=== PATIENT | female | born 1945 | race Caucasian/White ===

== ENCOUNTER 2016-12-04 22:05 | Emergency (ER) | payer MEDICAID ==
[2016-12-05 00:52] LABS: PLATELET COUNT 293 x10^3mcL (130-400)
[2016-12-05 01:01] LABS: CALCIUM 9.3 mg/dL (8.5-10.1); CARBON DIOXIDE 31.9 mmol/L (21-32); CHLORIDE SERUM 96 mmol/L (98-107); CREATININE SERUM 0.5 mg/dL (0.6-1.0); GLUCOSE SERUM 127 mg/dL (74-106); POTASSIUM SERUM 4.2 mmol/L (3.5-5.1); RED CELL DISTRIBUTION WIDTH 16.9 % (11.5-14.5); SODIUM SERUM 131 mmol/L (136-145)
[2016-12-05 01:08] LABS: ALBUMIN 1.7 g/dL (3.4-5.0); ALKALINE PHOSPHATASE 103 U/L (46-116); ALT/SGPT 18 U/L (14-59); AST/SGOT 22 U/L (15-37); BILIRUBIN TOTAL 0.72 mg/dL (0.20-1.00); TOTAL PROTEIN, SERUM 7.4 g/dL (6.4-8.2)
[2016-12-05 01:14] LABS: BAND NEUTROPHIL 50 % (0-10); MONOCYTE 4 % (0-7); SEGMENTED NEUTROPHILS 30 % (37-75)
[2016-12-05 01:15] LABS: rbc morphology (normal/abnorm) ABNORMAL (NORMAL)
[2016-12-05 01:16] LABS: PLATELET MORPHOLOGY LARGE PLATELET SEEN
[2016-12-05 01:40] LABS: microscopic required? YES; urine erythrocyte 1+ (NEGATIVE)
[2016-12-05 04:18] VITALS: BP 98/46
[2016-12-06] MEDS ORDERED: HYDROMORPHONE2 M1 (21:56)
[2016-12-06] MEDS ORDERED: ZOF4 (21:56)
[2016-12-06] MEDS ORDERED: SYNTHROID0.1 MG PO (21:56)
[2016-12-06] MEDS ORDERED: FERROUS SULFAT325 M2 PO (21:56)
[2016-12-06] MEDS ORDERED: LIPI20 GT (21:56)
== END 2016-12-05 04:18 | disposition home or self-care (01) ==
LOC: ED 22:05
PROVIDERS: Emergency Medicine
DX: E87.1 Hypo-osmolality and hyponatremia (principal); C34.32 Malignant neoplasm of lower lobe, left bronchus or lung; C79.89 Secondary malignant neoplasm of other specified sites; Z88.0 Allergy status to penicillin; E03.9 Hypothyroidism, unspecified
CPT/HCPCS: 83880; J2270; J2405; J7030; Q0092

== ENCOUNTER 2016-12-06 21:31 | Inpatient (IN) | payer MEDICAID ==
[~2016-12-06] VITALS: Ht 149.9 cm; Wt 38.3 kg
[2016-12-06] MEDS ORDERED: LIPI20 GT (21:56)
[2016-12-06] MEDS ORDERED: HYDROMORPHONE2 M1 (21:56)
[2016-12-06] MEDS ORDERED: FERROUS SULFAT325 M2 PO (21:56)
[2016-12-06] MEDS ORDERED: SYNTHROID0.1 MG PO (21:56)
[2016-12-06] MEDS ORDERED: ZOF4 (21:56)
[2016-12-06 22:07] LABS: PLATELET COUNT 248 x10^3mcL (130-400)
[2016-12-06 22:11] LABS: RED CELL DISTRIBUTION WIDTH 17.3 % (11.5-14.5)
[2016-12-06 22:20] LABS: ALKALINE PHOSPHATASE 88 U/L (46-116); ALT/SGPT 10 U/L (14-59); AST/SGOT 12 U/L (15-37); BILIRUBIN TOTAL 0.55 mg/dL (0.20-1.00); CALCIUM 8.5 mg/dL (8.5-10.1); CARBON DIOXIDE 29.4 mmol/L (21-32); CHLORIDE SERUM 100 mmol/L (98-107); CREATININE SERUM 0.7 mg/dL (0.6-1.0); GLUCOSE SERUM 198 mg/dL (74-106); LIPASE 44 IU/L (73-393); SODIUM SERUM 136 mmol/L (136-145); TOTAL PROTEIN, SERUM 6.8 g/dL (6.4-8.2)
[2016-12-06 22:21] LABS: ALBUMIN 1.4 g/dL (3.4-5.0)
[2016-12-06 22:23] LABS: POTASSIUM SERUM 2.8 mmol/L (3.5-5.1)
--- NOTE | 2016-12-06 22:25 | NUR ---
GT PATENT. FLUSHED WITHOUT RESISTANCE. +GI CONTENT DURING ASPIRATION WITH SYRINGE. TYLENOL 1GM CRUSHED AND GIVEN VIA GT ROUTE FOR FEVER
[2016-12-06 22:28] LABS: BAND NEUTROPHIL 22 % (0-10); METAMYELOCTE 10 % (0-2); MONOCYTE 13 % (0-7); MYELOCYTE 1 % (0-2); SEGMENTED NEUTROPHILS 31 % (37-75)
[2016-12-06 22:33] LABS: rbc morphology (normal/abnorm) ABNORMAL (NORMAL)
[2016-12-06 22:34] LABS: PLATELET MORPHOLOGY FEW LARGE PLATELETS
--- NOTE | 2016-12-06 23:02 | NUR ---
PT LAYING ON GURNEY WITH HOB UP MORE THAN 45 DEGREE. CALL LIGHT IS IN REACH. BED AT LOWEST POSITION.
--- NOTE | 2016-12-06 23:18 | NUR ---
PT PLACED ON BEDPAN AT THIS TIME.
[2016-12-07 00:21] LABS: UA SPECIFIC GRAVITY 1.015 (1.005-1.035); microscopic required? YES; urine erythrocyte 1+ (NEGATIVE)
--- NOTE | 2016-12-07 00:28 | NUR ---
INITIATED 1000BOLUS AND ROCEPHIN @100ML/HR.
--- NOTE | 2016-12-07 00:41 | NUR ---
PT PLACED ON BIPAP MACHINE. O2 SAT 99% AT THIS TIME.
--- NOTE | 2016-12-07 02:09 | NUR ---
REC'D PT FROM ED VIA [facility]. ALERT, AWAKE, AND ORIENTED X4. ETHIOPIAN SPEAKING. TELE#8 [facility]/CRACKLES HEARD BL BASES. IV ACCESS TO RAC WNL. ORIENTED TO ROOM AND SURROUNDINGS. BED IN LOWEST POSITIOIN. CALL LIGHT WITHIN REACH. WILL CONT TO MONITOR.
[2016-12-07 02:15] VITALS: BP 110/42
[2016-12-07 02:16] LABS: PHOSPHOROUS 2.4 mg/dL (2.5-4.9); T3 TOTAL 0.27 ng/mL
[2016-12-07 02:17] LABS: CHOLESTEROL/HDL RATIO 2.8
[2016-12-07 02:26] LABS: FREE T4 1.84 ng/dL (0.76-1.46); FREE THYROXINE INDEX 2.1 ug/dL (1.4-4.5)
--- NOTE | 2016-12-07 03:09 | NUR ---
PT IS C/O OF PAIN. WILL MEDICAT PER EMAR.
--- NOTE | 2016-12-07 03:44 | NUR ---
ED DOC NOTES COMFORT MEASURES ONLY FOR PT.
--- NOTE | 2016-12-07 04:28 | NUR ---
PT GIVEN ATIVAN FOR ANXIETY. WILL CONT TO MONITOR.
--- NOTE | 2016-12-07 05:32 | NUR ---
PT IS SHOWING FACIAL GRIMACE OF PAIN. WILL MEDICATE PER EMAR.
[2016-12-07 06:13] VITALS: BP 120/37
--- NOTE | 2016-12-07 06:20 | NUR ---
PT PERIODICALLY SLEPT THROUGHOUT THE SHIFT. NO SIGNIFICANT CHANGES OR DISTRESS NOTED. ON NONREBREATHER MASK @ 10L. LABORED BREATHING. IV INTACT AND PATENT. WILL ENDORSE ALL CONTINUITY CARE TO ONCOMING NURSE.
[2016-12-07 07:07] LABS: CALCIUM 8.2 mg/dL (8.5-10.1); CARBON DIOXIDE 28.7 mmol/L (21-32); CHLORIDE SERUM 106 mmol/L (98-107); CREATININE SERUM 0.5 mg/dL (0.6-1.0); GLUCOSE SERUM 128 mg/dL (74-106); MAGNESIUM 1.8 mg/dL (1.8-2.4); PHOSPHOROUS 3.5 mg/dL (2.5-4.9); SODIUM SERUM 142 mmol/L (136-145)
[2016-12-07 07:11] LABS: POTASSIUM SERUM 2.8 mmol/L (3.5-5.1)
[2016-12-07 07:16] LABS: PLATELET COUNT 241 x10^3mcL (130-400)
[2016-12-07 07:52] LABS: RED CELL DISTRIBUTION WIDTH 17.3 % (11.5-14.5)
--- NOTE | 2016-12-07 08:00 | NUR ---
RECEIVED PATIENT FROM THE PREVIOUS STAFF WITH LABORED BREATHING AND ON IV FLUIDS ORDERED AT 120CC PER HOUR BUT THE NURSE REDUCED PER NURSING DUE TO PATIENT IS CONGESTED AND OUTPUT IS LESS. NOTED SLOW VENOUS RETURN TO THE NAIL BEDS BUT REMAINS PINK AT THIS TIME. THE PULSES ARE THREADY TO THE EXTREMITIES AND PATIENT HAS SOME MINIMAL TRACE EDEMA TO THE LEGS. ACTIVE BOWEL SOUNDS NOTED AND PATIENT HAS BEEN WITH NON REBREATH IN PLACE AT HIGH FLOW INDICATED. RECIEVED MORPHINE AT AROUND 530AM AND SEEMS TO BE EFFECTIVE ACCORDING TO FAMILY SHE IS MORE COMFORTABLE AT THIS TIME. PATIENT WAS AT SOME POINT AMBULATORY AND NOW SHE IS LETHARGIC. SEVERAL FAMILY IN THE ROOM AND SOME CRYING AND OTHER PRAYING. GREIVING CART ORDERED FOR THE FAMILY AND PATIENT IS NPO AT THIS TIME. PATIENT RECEIVED POTASSIUM RIDER THIS AM BUT THE LAB MEGHAN AND AT 500 AND THE K RIDER HAD NOT HAD TIME TO CIRCULATE IT WAS GIVEN AT 300AM. WILL ADVISE THE OVERHEAD CRANE TRUCK LOADER. PATIENT ALSO HAS A WBC COUNT AT 1.6 ADN REMAINS IN NEUTROPHENIC PRECAUTIONS. HX OF LUNG CANCER AND TONGUE CANCER NOTED. PATIENT HAS RIGHT UPPER LOBE CAVITARY MASS ACCORDING TO HTE CHEST X RAY. THERE IS MILD PULMONARY VASCULAR CONGESTION AND THERE IS LEFT PERIHILAR AND LEFT BASIAR INFILTRATE WHICH COULD BE ATELECTASIS OR PNEUMONIA. PATIENT H AND H FOF ALSO LOW AT 8.4/26. PATIENT HAS BEEN SINUS TACH ON THE MONITOR AND WITH VITALS LAST TAKEN AT 98.5, 122, 28, 120/57, 99%N ON THE NON REBREATHER MASK. PATIENT HAS SOME SACRAL REDNESS PER REPORT BUT FAMILY HAS INDICATED THAT THEY WOULD LIKE HER NOT TO BE DISTURBED TO TURN TO EXAMINE AT THIS TIME. HAS BEEN ON ZOSYN AND NO ADVERSE REACTION NOED. PATIENT HAS ALLERGY TO BOTH PCN AND IODINE.
--- NOTE | 2016-12-07 09:27 | NUR ---
SEEN BY DR NAZARIO AND STAFF AND PLAN OF CARE NOTED. PATIENT IS TO HAVE A DOSE OF MORPHINE 3MG NOW AND TO BE SEEN BY DR CAROLA BALLARD FOR POSSIBLE HOSPICE FOR THE PATIENT. FAMILY AT BEDSIDE AND SUPPORTIVE WITH CARE. ALREADY THEY SEEM TO BE IN THE ACCEPTANCE PROCESS OF GREIVING. PATIENT IS WITH RALES BILATERALY AND IV FLUIDS HAVE BEEN DISCONTINUED AT THIS TIME. PATIENT HAS BEEN LETHARGIC AND ONLY OCCASIONALY WITH SOME MOVEMENT OF THE ARMS BUT NO EYE OPENING AT THIS TIME. CONTINUED ON NON REBREATHER INDICATED.
[2016-12-07 10:30] VITALS: BP 134/35
[2016-12-07 11:02] LABS: BAND NEUTROPHIL 36 % (0-10); MONOCYTE 21 % (0-7); SEGMENTED NEUTROPHILS 24 % (37-75); rbc morphology (normal/abnorm) ABNORMAL (NORMAL)
[2016-12-07 11:03] LABS: PLATELET MORPHOLOGY PLATELETS NORMAL
[2016-12-07 14:00] VITALS: BP 75/18
--- NOTE | 2016-12-07 14:17 | NUR ---
DR CAROLA NGUYEN IN TO SEE THE PATIENT AND DISCUSSED PATIENTS PLAN OF CARE AND THE FAMILY IS AGREEABLE FOR PALATIVE CARE. TO START MORPHINE DRIP ORDERED POST DOSING OF MORPHINE NOW. PATIENT IS WITH LABORED BREATHING AND IS MOTTLED TO THE FINGERS AND NO BLANCHING NOTED TO THE NAIL BEDS. PATIENT IS STILL NON RESPONSIVE TO STAFF OR FAMILY. SHE HAS BEEN FAIRLY COMFORTABLE WITH THE ATIVAN AND MORPHINE GIVEN EARLIER. THE PATIENT THOUGH IS STRUGGLING WITH BREATHING. CONTINUED ON NON REBREATHER ORDERED. WILL ENCOURAGE ANY QUESTIONS OR ASSISTANCE WTIH THE GRIEVING PROCESS WITH THE FAMILY.
--- NOTE | 2016-12-07 14:59 | NUR ---
STARTED THE MS DRIP ORDERED AT 4ML EQUALING 2 MG PER HOUR. PATIENT IS NOW ON A NASAL CANNULA AND NOT THE NON REBREATHER. THE FAMILY FEELS SHE NEEDS THE NON REBREATHER . SPOKE WITH RT AND THEY WILL PUT HER BACK ON THE NON REBREATHER.
--- NOTE | 2016-12-07 15:27 | NUR ---
PATEINT HAD NOT EVEN RECIEVED 2MG OF THE MORPHINE DRIP HUNG AND PATIENT PASSED QUIETLY WITH FAMILY AT BEDSIDE. CALLED THE SHEET TAILER TO PRONOUCE AND DR CAROLA NGUYEN AT BEDSIDE WELL TO VERIFY . PATIENTS NASAL CANNULA REMOVED AND THE MS DRIP REMOVED INDICATED. NOTIFIED THE CHARGE NURSE AND THEN THE SUPPERVISOR WELL SECURITY.
--- NOTE | 2016-12-07 15:36 | NUR ---
Nutrition Note Dx:Respiratory failure PMHx: Stage IV Lung CA, diagnosed approx 12 months ago and HTN. Labs: (12/07) K:2.8L, B,Ca:8.2L , Lactic acid:3.9H, WBC:1.6L, H/H:8.4/26L(12/06) A1c:7.8H (12/05) Alb:1.7L, Diet:NPO PO Intake:N/A due to current NPO status Ht: 59in, 4'11" Wt: 84#,38.32kg BMI: 17.1kg/m2 (underweight) Skin:intact; redness to coccyx. Jose:13 Nursing Trigger: Appears underweight/malnourihsed, unintnetional wt loss >10# in past month, admitted with potential risk diagnosis, poor PO intake>3days, unable to ingest for age and TF. Pt found with severe sepsis likley secondary to aspiration pneumonia, stage IV lung cancer on chemotherapy and acute respiratroy failure secondary to aspiration pneumonia an lung cancer. Pt is DNR. Per RN note 12/07, Dr. Dietz saw the patient and discussed patient's plan of care and the family is agreeable to pallative care. Pt started on morpine drip. Review indicated pt is a low risk at this time. RD to follow up per nutrition care policy and standards. Pt will be followed up on:12/14
--- NOTE | 2016-12-07 16:25 | NUR ---
BODY RELEASED BY THE BREAKFAST BAR ATTENDANT AND STILL AWAITING CALL BACK FROM [facility]. BOTH CALLED IN TIMELY MANNER WITH [facility] AT 1520 AND THEN THE BREAKFAST BAR ATTENDANT AT 1545 JUST AFTER SPEAKING WITH THE STAFF AT [facility]. PATIENTS FAMILY GAVE INFORMATION ON THE NEXT OF KIN SUCH ADDRESS AND ADVISED THE PATIENT LIVED WITH THE NIECES AND RECENTLY CAME TO [place] TO STAY WITH [facility] [place] FOR HER TO CARE FOR HER. PATIENT CAME TO THE EMERGENCY ROOM WHEN SHE BECAME SOB. AT TIME OF THE PATIENT WAS SURROUNDED BY FAMILY. PER THE FAMILY ONE [facility] HAS YET TO ARRIVE TO VIEW THE BODY AND THEN THE FAMILY IS AWARE OF TIME CONSTRAINTS AND THE NEED TO SEND THE BODY TO THE [place] TO PRESERVE. WILL REMOVE IV INDICATED WELL TELE MONITOR.
--- NOTE | 2016-12-07 17:45 | NUR ---
FAMILY REMAIN AT BEDSIDE AND AWAITING OTHER FAMILY TO ARRIVE FROM OUT OF TOWN. PLAN IS FOR CREMATION. [facility] AND [employer] HAVE RELEASED THE BODY.
--- NOTE | 2016-12-07 18:34 | NUR ---
ADVISED THE FAMILY AGAIN OF THE NEED FOR THE PATIENT TO GO TO THE [facility] FOR PRESERVING THE BODY. PER POLICY THE BODY CAN NOT BE LEFT OUT OF SOME KIND OF REFRIDGERATION FOR MORE THAN 2-4 HOURS. THE FAMILY WILL EXCEED OVER AN HOUR PAST THIS TIME AWAITING FAMILY FROM OUT OF TOWN TO ARRIVE. STAFF CLEANSED THE BODY AND PREPARED THE BODY BY PARTIALY PLACING IN THE SHROUD AND APPLYING THE TOE AND WRIST TAGS IDNICATED. A PILLOW PLACE UNDER THE HEAD AND THE BODY COVERED WITH A SHEET AND BLANKET. FAMILY IS VISITING AT BEDSIDE AGAIN AND WILL ATTEMPT TO GET FAMILY TO ALLOW THE REMOVAL AT THE SCHEDULED TIME. MAKING THIS EARLIER PREPARATION IS GIVING THE FAMILY MORE TIME WITH THE PATIENT ALLOWED.
== END 2016-12-07 21:30 | disposition expired | DRG 137 ==
LOC: ED 21:31 → DU 12-07 00:57
PROVIDERS: Emergency Medicine; ADMIT Family Medicine
DX: J69.0 Pneumonitis due to inhalation of food and vomit (principal); N17.0 Acute kidney failure with tubular necrosis; J96.01 Acute respiratory failure with hypoxia; E43 Unspecified severe protein-calorie malnutrition; C78.01 Secondary malignant neoplasm of right lung; C02.9 Malignant neoplasm of tongue, unspecified; C78.02 Secondary malignant neoplasm of left lung; E87.8 Other disorders of electrolyte and fluid balance, not elsewhere classified; D64.9 Anemia, unspecified; E87.6 Hypokalemia; Z51.5 Encounter for palliative care; Z66 Do not resuscitate; R00.0 Tachycardia, unspecified; M62.50 Muscle wasting and atrophy, not elsewhere classified, unspecified site; E05.90 Thyrotoxicosis, unspecified without thyrotoxic crisis or storm; Z93.1 Gastrostomy status; Z68.1 Body mass index [BMI] 19.9 or less, adult
CPT/HCPCS: 82962; 83880; 84439; J0696; J1956; J2060; J2270; J2543; J3480; J7030; J7040; Q0092